=== PATIENT | female | born 1990 | race Caucasian/White ===

== ENCOUNTER 2016-12-22 02:49 | Observation (INO) | payer MEDICAID ==
[~2016-12-22] VITALS: Ht 167.6 cm; Wt 65.0 kg
[2016-12-22 03:19] LABS: DAU SCREEN DISCLAIMER
[2016-12-22 03:20] LABS: BLOOD UREA NITROGEN 13 mg/dL (7-18)
[2016-12-22 03:23] LABS: ASPARTATE AMINO TRANSFERASE 54 U/L (15-37)
[2016-12-22 03:26] LABS: ACETAMINOPHEN < 2 mcg/mL (10-30)
[2016-12-22] MEDS ORDERED: PREN1TAB27 PO (06:12)
[2016-12-22] MEDS ORDERED: ACETAMINOPHEN 325 MG TABLET PO PRN (07:00)
[2016-12-22] MEDS ORDERED: POTASSIUM CHLORIDE 20 MEQ TAB.ER.PRT PO ONE (07:00)
[2016-12-22 08:38] VITALS: BP 103/70
[2016-12-22] MEDS: PRENATAL VIT/IRON/FA 1 EACH TABLET PO SCH (09:00)
[2016-12-22] MEDS ORDERED: FLUOXETINE 20 MG CAPSULE PO ONE (14:13)
[2016-12-22] MEDS ORDERED: DIPHENHYDRAMINE 25 MG CAPSULE PO PRN (14:30)
[2016-12-22] MEDS ORDERED: DIPHENHYDRAMINE 50 MG CAPSULE PO PRN (14:30)
[2016-12-22 21:38] VITALS: BP 107/60
[2016-12-23 07:42] VITALS: BP 103/63
[2016-12-23] MEDS: PRENATAL VIT/IRON/FA 1 EACH TABLET PO SCH (08:46)
[2016-12-23] MEDS ORDERED: FLUOXETINE 20 MG CAPSULE PO SCH (09:00)
== END 2016-12-23 09:50 ==
LOC: ED 03:50 → EDIP 06:12 → 3E 08:18
PROVIDERS: ADMIT Family Medicine; ATTEND Family Medicine
DX: O99.342 Other mental disorders complicating pregnancy, second trimester (principal); R45.851 Suicidal ideations; F41.9 Anxiety disorder, unspecified; F32.9 Major depressive disorder, single episode, unspecified; O99.113 Other diseases of the blood and blood-forming organs and certain disorders involving the immune mechanism complicating pregnancy, third trimester; D72.829 Elevated white blood cell count, unspecified; O99.283 Endocrine, nutritional and metabolic diseases complicating pregnancy, third trimester; E87.6 Hypokalemia; O99.333 Smoking (tobacco) complicating pregnancy, third trimester; F17.210 Nicotine dependence, cigarettes, uncomplicated; F43.10 Post-traumatic stress disorder, unspecified; Z3A.27 27 weeks gestation of pregnancy; Z91.5 Personal history of self-harm
CPT/HCPCS: 36415; 76805; 80053; 80307; 80329; 81001; 85025; 99285; G0378; G0480